=== PATIENT | male | born 1950 | race Caucasian/White ===

== ENCOUNTER 2017-06-30 14:46 | Emergency (ER) | payer MEDICARE, BC ==
[2017-06-30] MEDS ORDERED: IPRATROPIUM-ALBUTEROL 3 ML NEB INHALATION STA (15:34)
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
--- NOTE | 2017-06-30 15:56 | XR ---
EXAMINATION TYPE: XR chest 2V DATE OF EXAM: 06/30/2017 COMPARISON: None HISTORY: 66-year-old male cough for 2 weeks and pain TECHNIQUE: PA and lateral views FINDINGS: Heart is borderline enlarged. Diffuse interstitial prominence and peribronchial cuffing. No consolida tion or pleural effusion. IMPRESSION: Peribronchial cuffing. Correlate for bronchitis or asthma.
[2017-06-30] MEDS ORDERED: predniSONE 20 MG TAB PO STA (15:57)
[2017-06-30 16:17] VITALS: BP 139/65; RESP 16; TEMP 97.7
[2017-06-30 16:33] VITALS: PULSE 60
== END 2017-06-30 16:47 | disposition home or self-care (01) ==
LOC: EC 14:46
DX: J40 Bronchitis, not specified as acute or chronic (principal); J06.9 Acute upper respiratory infection, unspecified; E11.9 Type 2 diabetes mellitus without complications; I10 Essential (primary) hypertension; Z86.73 Personal history of transient ischemic attack (TIA), and cerebral infarction without residual deficits; Z79.4 Long term (current) use of insulin; Z79.82 Long term (current) use of aspirin; Z79.01 Long term (current) use of anticoagulants; Z79.899 Other long term (current) drug therapy; Z88.0 Allergy status to penicillin; Z88.2 Allergy status to sulfonamides
CPT/HCPCS: 94640; 87502; 71020; 99284; J7512